=== PATIENT | female | born 1980 | race Caucasian/White ===

== ENCOUNTER → 2016-10-24 | Outpatient (CLI) | payer OTHER ==
--- NOTE | 2016-10-24 17:45 | US ---
October 24, [address] Bishop, Thank you very much for allowing me to see your patient Diana Lieberman. As you know, she is a 36-year- old 2, para 1001 who was asked to see us for advanced maternal age counseling and nuchal tra nslucency measurement. Her history is significant only for advanced maternal age (36 at delivery). She reports that she had reassuring NIPT screening. LMP: 07/28/2016 Age by dates: 12 weeks 3 days EDC: 05/05/2017 based on LMP consistent with 8-week ultrasound ULTRASOUND [place] rump length: 70 mm Gestational age by crown rump length: 13 weeks 0 day(s) CLOTILDE by crown rump length: 05/01/2017 Consistent with established dating: Yes Nuchal translucency: 2.0 mm, which is reassuring at this gestational age Nasal bone: Present heart rate: 160 bpm Placenta: Right ovary not visualized. Left ovary visualized and appears normal. It measures 3.4 x 1.7 x 2.4 cm No overt structural anomalies were identified for this early ultrasound, but please note that a full anatomic evaluation has not occurred at this early gestational age. IMPRESSION: 1. Intrauterine at 12 weeks 3 days with EDC of 05/05/2017. 2. The limited anatomy appears normal. 3. The two Down syndrome markers are normal. She has had NIPT screening, which was reassuring per he r report. We discussed the sensitivity and predictive values of this testing as well as that the onl y way to directly evaluate the chromosomes is by invasive procedure such as CVS or amniocentesi s. RECOMMENDATIONS: -serum AFP screening after 16 weeks to assess neural tube defect risk -detailed anatomy ultrasound at ~20 weeks -Diana declines invasive diagnostic testing at this time Thank you for allowing us the opportunity to evaluate your patient. Should you have any further ques tions or concerns please do not hesitate to contact me. Approximately 15 minutes were spent with the patient, of which 10 minutes were spent in [id number] consultation discussing screening and diagnosis. Ashia Christianson M.D., Ph.D. Breakfast And Room Attendant Department of Obstetrics and Gynecology [facility]
--- NOTE | 2016-10-25 00:37 | US ---
First Trimester Obstetrical Sonography CLINICAL HISTORY: 36-year-old female with advanced maternal age, presenting for early scree brian evaluation. TECHNIQUE: A curvilinear 5-megahertz transducer was used to sonographically evaluate the fetus and t he placenta. M-mode Doppler was used. Dr. Ashia Christianson is present. COMPARISON STUDY: None currently available. LMP: July 29, 2016, indicating an age of 12 weeks, 3 days, and an estimated date of delivery of J [id number]. FINDINGS: There is a single viable intrauterine gestation, with a crown-rump length of 70 mm, corresponding to an age of 13 weeks, 2 days. The heart rate is 160 bpm. The placenta is formi ng anteriorly. There is no focal fibroid or subchorionic hemorrhage. The heart rate is 160 bp m. The maternal right ovary is not visualized. The maternal left ovary measures 3.4 x 1.7 x 2.4 cm. The nuchal translucency is normal, measuring 2.0 mm, and a nasal bone is seen. IMPRESSION: There is a single viable intrauterine gestation, with two normal early screenin g markers. The patient should return at 20 weeks gestation for more complete anatomic screening and repeat biometry. Please also refer to Dr. Christianson' separate assessments and recommendations.
== END ==
LOC: FIMAGING 14:30
PROVIDERS: ATTEND Obstetrics & Gynecology
DX: Z36 Encounter for antenatal screening of mother (principal); Z3A.12 12 weeks gestation of pregnancy; O09.521 Supervision of elderly multigravida, first trimester

== ENCOUNTER → 2016-11-18 | Outpatient (CLI) | payer OTHER ==
--- NOTE | 2016-11-18 15:55 | US ---
November 18, [address] Bishop, Thank you for requesting consultation and a ultrasound to evaluate the anatomy for your patient, Mrs. Lieberman. As you know, Diana is a 36 year old G 2, P 1001 with a sherman preg olga dating 16 w 0 d; CLOTILDE of 05/05/17 by LMP confirmed by 8 week ultrasound. Aneuploidy screening w as performed and returned reassuring results. Carrier screening was also performed revealing that sh e is a CF carrier (spouse is not), and that she has one allele in the premutation area with 62 repeat s for Fragile X. ULTRASOUND Number of fetuses: 1 Placental location: Anterior Placental cord insertion: Intraplacental presentation: Variable Cervix: 3.6 cm viewed transabdominally Maximum Vertical Pocket: 4.5 cm The adnexa were evaluated. No pathology was seen. Right ovary is visualized and seen as normal. It measures 2.9 x 1.5 x 3.0 cm. Left ovary is not seen on today's ultrasound. MEASUREMENTS: Biparietal diameter: 37 mm 17 weeks, 3 days Head circumference: 142 mm 17 weeks, 4 days Abdominal circumference: 116 mm 17 weeks, 3 days Femur length: 22 mm 16 weeks, 4 days Humerus length: 22 mm 16 weeks, 5 days Transcerebellar diameter: 17 mm 17 weeks, 2 days Average ultrasound age: 17 weeks, 2 days Estimated weight: 179 gm weight percentile: 96% ANATOMY Supratentorial brain: Normal including views of the falx, cavum septum pellucidum and choroids Lateral Ventricle: Normal, measuring 5.5 mm Posterior fossa: Normal including the cerebellum and cisterna magna Spine: Normal Nuchal fold: 5.5 mm normal Face: Normal views of the lip and nose area Profile: Normal Palate: Suboptimal Heart: Four Chamber View: Limited views; 4 chambers noted LVOT: Limited, but correctly oriented RVOT: Limited but correctly oriented 3VV: Normal Tracheal View: Suboptimal Aortic Arch: Suboptimal Ductal Arch: Suboptimal SVC/IVC: Suboptimal Heart Rate 161 bpm Diaphragm: Normal appearance without overt abnormality detected Stomach: Normal Umbilical cord insertion: Normal Right kidney: Normal Left kidney: Normal Bladder: Normal Number of cord vessels: Three Upper extremities: Normal Lower extremities: Normal Gender: Male IMPRESSION: 1. Intrauterine at 16 w 0 d, ultrasound is consistent with her established CLOTILDE of 05/05/17 . 2. Normal anatomical survey for this gestational age with suboptimal cardiac views and views o f the face including palate. 3. Cervical length is normal at 3.6 cm without evidence of insufficiency. 4. CF carrier; spouse is not. 5. 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 Offered and declined amniocentesis RECOMMENDATIONS: I was pleased to review today's ultrasound with your patient and her spouse. I reassured her that th e baby is growing appropriately with normal amniotic fluid volume. Our detailed review of the anatomy did not reveal any overt abnormalities but was limited by early gestational age for ful l evaluation of the heart and face. I did recommend a reevaluation in our office in 4 weeks. We spent the majority of our time discussing her carrier screening. She is a CF carrier and her spou se is not. She is aware that the risk of CF for her child very low, but not zero. We also discussed Fragile X premutation of the one allele. She was able to share with me that she has 2 AG breaks whi ch limits the risk of expansion. So although she has 50% chance of passing on this allele with a ri sk around 2.7% for an affected child this risk is now lower based on this information. With her risk <1% and no case reports of expansion in the literature she was much more at ease with the informatio n. We discussed opportunities for definitive genetic diagnosis by amniocentesis including the proced ure, risks, benefits, alternatives and limitations to the information received. After our conversati on, your couple DECLINED amniocentesis. I recommend a follow up in 4 weeks. Thank you for allowing us the opportunity to evaluate your patient. Should you have any further ques tions or concerns please do not hesitate to contact me. Approximately 15 minutes were spent with the patient and 10 minutes were spent in face to face consu ltation. Dionne Ortiz MD Audio Director Maternal Medicine Diagnosis Department of Obstetrics & Gynecology [facility]
--- NOTE | 2016-11-18 17:30 | US ---
Complete Obstetric Ultrasound dated November 18, 2016 Indication: Check growth and anatomy. Cystic fibrosis carrier, and fragile X. The estimated gestatio nal age by LMP is 16 weeks 0 days yielding an EDC of May 05, 2016. Comparison: March 24, 2017 Findings: Number: 1 Presentation: Breech Placental location: Anterior without previa Cervix: 3.56 cm transabdominally HR: 161 bpm MVP: 4.45 cm No adnexal mass. Ovaries are normal. Biometry: Biparietal diameter: 3.7 cm 17 weeks 3 days Head circumference: 14.2 cm 17 weeks 4 days Abdominal circumference: 11.6 cm 17 weeks 3 days Femur length: 2.2 cm 16 weeks 4 days Humerus length: 2.1 cm 16 weeks 5 days HC/AC: 1.22 (1.05 - 1.39) FL/BPD: 58% FL/AC: 19% Average ultrasound age: 17 weeks 2 days EDC based on today's average ultrasound age: April 26, 2017 Estimated weight is 179 +/- 26 gms. The estimated weight is at the 96 % based on previous dating. ANATOMY SURVEY: Supratentorial brain: Normal Posterior fossa: Normal Spine: Normal Nose and lips: Normal Facial profile: Normal Heart: Four chamber heart. Intact interventricular septum. Cardiac outflow tracts: Normal Stomach: Normal Umbilical cord insertion: Normal Kidneys: Normal, no pyelectasis Bladder: Normal Number of cord vessels: Three Upper extremities: Normal Lower extremities: Normal. No clubbing. Impression: 1. Living sherman . Size concordant with dates. The estimated gestational age by biometry is 17 weeks 2 days yielding an EDC of April 26, 2017. 2. Unremarkable anatomy. No anomalies detected. 3. Please see additional consultation by Dr. Dionne Ortiz.
== END ==
LOC: FIMAGING 13:37
PROVIDERS: ATTEND Obstetrics & Gynecology
DX: O09.522 Supervision of elderly multigravida, second trimester (principal); O28.5 Abnormal chromosomal and genetic finding on antenatal screening of mother; Z3A.16 16 weeks gestation of pregnancy

== ENCOUNTER 2017-03-17 00:50 | Observation (INO) | payer OTHER ==
[2017-03-17] MEDS ORDERED: TERBUTALINE SULFATE 1 MG/ML VIAL SC ONE (02:00)
[2017-03-17] MEDS ORDERED: LR 1,000 ML IV ONE (02:00)
== END 2017-03-17 04:30 | disposition home or self-care (01) ==
LOC: FLD 00:50
PROVIDERS: ADMIT Obstetrics & Gynecology; ATTEND Obstetrics & Gynecology
DX: O60.03 Preterm labor without delivery, third trimester (principal); O09.529 Supervision of elderly multigravida, unspecified trimester; Z3A.33 33 weeks gestation of pregnancy
CPT/HCPCS: 59025; G0378; J3105

== ENCOUNTER 2017-04-14 11:15 | Inpatient (IN) | payer OTHER ==
[2017-04-14] MEDS ORDERED: EPSOM SALT 454 GM TP PRN (12:10)
[2017-04-14] MEDS ORDERED: LR 1,000 ML IV PRN (12:10)
[2017-04-14] MEDS ORDERED: OXYTOCIN/RINGERS LACTATE 1,000 ML IV PRN (12:10)
[2017-04-14] MEDS ORDERED: TERBUTALINE SULFATE 1 MG/ML VIAL IV PRN (12:10)
[2017-04-14] MEDS ORDERED: OLIVE OIL 118 ML BTL MISC PRN (12:10)
[2017-04-14 12:24] LABS: ABSOLUTE IMMATURE GRANULOCYTES 0.12 10^3/uL (0.00-0.10); ADD DIFF? NO; ADD MORPH? NO; ADD SCAN? NO; ATYPICAL LYMPHOCYTE FLAG 10 (0-99); FRAGMENT RBC FLAG 0 (0-99); HEMATOCRIT 40.7 % (38.0-47.0); HEMOGLOBIN 14.3 g/dL (12.6-16.3); LEFT SHIFT FLG 10 (0-99); LIPEMIA HEMOLYSIS FLAG 90 (0-99); MEAN CELL HEMOGLOBIN 31.2 pg (27.9-34.1); MEAN CELL HEMOGLOBIN CONCENTR. 35.1 g/dL (32.4-36.7); MEAN CELL VOLUME 88.9 fL (81.5-99.8); MEAN PLATELET VOLUME 10.4 fL (8.7-11.7); PLATELET CLUMPS FLAG 10 (0-99); PLATELET COUNT 290 10^3/uL (150-400); RED BLOOD CELL COUNT 4.58 10^6/uL (4.18-5.33); RED CELL DISTRIBUTION WIDTH 13.7 % (11.5-15.2)
[2017-04-14] MEDS ORDERED: AMMONIA AROMATIC 1 EACH AMP IH ONE (12:32)
[2017-04-14] MEDS ORDERED: TERBUTALINE SULFATE 1 MG/ML VIAL ONE (12:32)
[2017-04-14] MEDS ORDERED: OLIVE OIL 118 ML BTL ONE (12:32)
[2017-04-14] MEDS ORDERED: LIDOCAINE 1% 300 MG/30 ML SDV ONE (12:32)
[2017-04-14] MEDS ORDERED: MISOPROSTOL 200 MCG TAB ONE (12:33)
[2017-04-14] MEDS ORDERED: OXYTOCIN 10 UNIT/ML VIAL ONE (12:33)
[2017-04-14] MEDS ORDERED: fentaNYL 100 MCG/2 ML INJ ONE (12:50)
[2017-04-14] MEDS ORDERED: PHENYLEPHRINE HCL 100 MCG/ML SYR ONE (12:51)
[2017-04-14] MEDS ORDERED: BUPIVACAINE 0.25% 30 ML SDV ONE (12:51)
[2017-04-14] MEDS ORDERED: fentaNYL 2MCG/ML/BUP 0.1% RTU 100 ML BAG EP ONE (12:51)
[2017-04-14] MEDS ORDERED: NALOXONE HCL 0.4 MG/ML INJ IVP PRN (13:11)
[2017-04-14] MEDS ORDERED: ONDANSETRON 4 MG/2 ML VIAL IVP PRN (13:11)
[2017-04-14] MEDS ORDERED: PHENYLEPHRINE HCL 100 MCG/ML SYR IVP PRN (13:11)
--- NOTE | 2017-04-14 13:25 | OBPROG ---
OBG Labor Progress Note Assessment/Plan: Assessment:cat1 coping fair epidural placed for pain relief at patient request srom clear fluid 8/100/-1 cephalic gbs negative Plan:expectant management of labor 04/14/17 13:23 Subjective: Getting an epidural for pain relief. Before epidural utilized laughing gas to assist with pain relief Objective: 04/14/17 12:10 Patient ABO/Rh O POSITIVE 04/14/17 12:10 - SVE Dilation (cm): 8 Effacement (%): 100 Station: -1 - Physical Exam General Appearance: WD/WN, alert, no apparent distress Respiratory: chest non-tender, lungs clear, normal breath sounds Cardiac/Chest: regular rate, rhythm Abdomen: normal bowel sounds Extremities: normal range of motion, Cora's sign (negative bilaterally) DTR- Lower Extremities: Knee (R): 1+, Knee (L): 1+ (no clonus) Skin: normal color, warm/dry Neuro/Psych: no motor/sensory deficits, alert, normal mood/affect, oriented x 3 ICD10 Worksheet Patient Problems: Problems Problem Status Onset Vaginal delivery Acute
[2017-04-14] MEDS ORDERED: fentaNYL 2MCG/ML/BUP 0.1% RTU 100 ML EP SCH (13:30)
[2017-04-14] MEDS ORDERED: LR 500 ML IV SCH (13:30)
--- NOTE | 2017-04-14 14:29 | GHP ---
[f rep st] HISTORY AND PHYSICAL DATE OF ADMISSION: 04/14/2017 HISTORY: The patient is a 36-year-old 2, para 1, with an EDC of 2016, who comes in on 04/14/2017 with complaints of regular contractions since early a.m. Has been routinely seeing [facility] since 8 weeks and 2 days. MEDICAL HISTORY: The patient has a history of migraines, history of molluscum, rare yeast, history of anxiety, probable depression with first delivery. SOCIAL HISTORY: The patient is to a nonsmoker. Denies drug use. ALLERGIES: NKDA. MEDICATIONS: vitamins. [employer] WORK[employer] HISTORY: Anemic. Delivered in 07/2013 a male, 7 pounds and 5 ounces, at 37 and 2/7 weeks. 12 hours of labor. Vaginal delivery with an epidural. FAMILY HISTORY: Noncontributory. LABS: O positive. Antibody negative. RPR is nonreactive. Rubella is not immune. Hepatitis is negative. HIV is negative. Gonorrhea and chlamydia were negative. 1 hour GTT was within normal limits. Verifi was negative. The patient is GBS negative. PHYSICAL EXAMINATION: GENERAL: The patient is awake, alert, and oriented x3. LUNGS: Clear bilaterally. ABDOMEN: Bowel sounds are positive in all 4 quadrants. EXTREMITIES: DTRs are 1+ bilaterally. No clonus. Homans sign is negative bilaterally. Epidural is one-sided at this time, complaining of less pain with contractions. Exam is 8, 100, -1 station, cephalic. Kimberly every 3-4 minutes spontaneous rupture of membranes. The patient is GBS negative. PLAN OF CARE: 1. Expectant management of labor. 2. Epidural for pain relief. 3. GBS negative. 4. Consult Dr. Ursula Bishop for any difficulties. /[id number]/MODL MTDD
[2017-04-14] MEDS ORDERED: METHYLERGONOVINE MAL 0.2 MG/ML INJ ONE (16:19)
[2017-04-14] MEDS ORDERED: SIMETHICONE 80 MG TAB CHEW PO PRN (17:29)
[2017-04-14] MEDS ORDERED: ACETAMINOPHEN 325 MG TAB PO PRN (17:29)
[2017-04-14] MEDS ORDERED: HYDROCORTISONE 0.5% CREAM TP PRN (17:29)
--- NOTE | 2017-04-14 17:29 | OBDEL ---
Info Type: Vaginal GBS+: No Indications for Delivery: Spontaneous Labor, SROM Vaginal Delivery - Labor and Delivery Onset of Contractions Date: 04/14/17 Onset of Contractions Time: 08:00 Onset of Contractions Type: Spontaneous Rupture of Membranes Date: 04/14/17 Rupture of Membranes Time: 15:15 Rupture of Membranes Type: Spontaneous Amniotic Fluid Color: Clear Dilation Complete Date: 04/14/17 Dilation Complete Time: 15:15 Placenta Delivery Date: 04/14/17 Placenta Delivery Time: 16:14 Total Hours of Labor: 8 Laceration: Other (Specify) (vaginal/ bilateral periurethral repair the right left labial repaired with 4.0 vicryl) Repair: 3-0, Vicryl Vaginal Sponge Count Correct: Yes Vaginal Needle Count Correct: Yes Vaginal Sweep Performed: No EBL: 400 Delivery Events: None - Medications Labor Augmentation/Induction Methods Used: None Data Anne Delivery Date: 04/14/17 Delivery Time: 16:01 CLOTILDE: 05/05/17 Gestational Age: 37 week(s) and 0 day(s) Sex of : Male Score (1 Min): 8 Score (5 Min): 9 ICD10 Worksheet Patient Problems: Problems Problem Status Onset Vaginal delivery Acute
[2017-04-14] MEDS: IBUPROFEN 600 MG TAB PO PRN (19:36)
[2017-04-14] MEDS: DOCUSATE SODIUM 100 MG CAP PO PRN (21:46)
[2017-04-15] MEDS: IBUPROFEN 600 MG TAB PO PRN ×4 (01:20→19:50)
[2017-04-15] MEDS: DOCUSATE SODIUM 100 MG CAP PO PRN (07:39)
--- NOTE | 2017-04-15 20:15 | OBPP ---
Progress Note Assessment/Plan: Assessment: ppd# 2 s/p breast feeding Plan: routine post care 04/15/17 20:13 Subjective: patient is doing well. pain is well controlled. cramping controlled with ibuprofen. normal lochia. denies headache and changes in vision. voiding without difficulty. Objective: 04/14/17 12:10 Patient ABO/Rh O POSITIVE 04/14/17 12:10 Temp Pulse Resp BP Pulse Ox 37.0 C 90 16 104/70 96 04/15/17 07:45 04/15/17 07:45 04/15/17 07:45 04/15/17 07:45 04/15/17 07:45 Uterine Position/Fundal Height: Umbilicus -2 Uterine Tone: Firm Physical Exam - Physical Exam General Appearance: WD/WN, alert, no apparent distress Respiratory: chest non-tender, lungs clear, normal breath sounds Cardiac/Chest: normal peripheral pulses, regular rate, rhythm Abdomen: normal bowel sounds, hypoactive bowel sounds, non-tender Extremities: normal range of motion, non-tender, normal inspection, normal capillary refill Skin: normal color, warm/dry Neuro/Psych: no motor/sensory deficits, alert, normal mood/affect, oriented x 3
[2017-04-16] MEDS: HYDROCODONE/APAP 5/325 TAB PO PRN ×3 (00:57→13:31)
[2017-04-16] MEDS: IBUPROFEN 600 MG TAB PO PRN ×3 (01:28→15:06)
[2017-04-16] MEDS: DOCUSATE SODIUM 100 MG CAP PO PRN (08:31)
--- NOTE | 2017-04-16 08:31 | OBPP ---
Progress Note Assessment/Plan: Assessment: s/p PPD # 2 - pt is stable Plan: Plan for d/c home later today Instructions reviewed with pt Rx given for [place] Cont PNV, colace Pelvic rest RTC in 4 and 6 weeks for pp visit 04/16/17 08:28 Subjective: Pt seen and examined. Doing well with no complaints. Mild cramping. Moderate lochia. Voiding without difficulty. Passing flatus, no BM yet. BF with some difficulty-to meet with today. Objective: 04/14/17 12:10 Patient ABO/Rh O POSITIVE 04/14/17 12:10 Temp Pulse Resp BP Pulse Ox 36.9 C 106 H 18 120/73 95 04/15/17 20:00 04/15/17 20:00 04/15/17 20:00 04/15/17 20:00 04/15/17 20:00 Uterine Position/Fundal Height: Umbilicus -2 Uterine Tone: Firm Physical Exam - Physical Exam General Appearance: WD/WN, alert, no apparent distress Respiratory: lungs clear, normal breath sounds Cardiac/Chest: regular rate, rhythm Abdomen: normal bowel sounds, non-tender, soft, flatus (+) Extremities: non-tender, normal inspection Skin: normal color, warm/dry Neuro/Psych: alert, normal mood/affect, oriented x 3
--- NOTE | 2017-04-16 08:33 | OBGCSDC ---
General Delivery Information - General Info : 2 Para: 2 Delivery Physician/CNM: Melissa Fish Admission Date: 04/14/17 Labs: Patient ABO/Rh O POSITIVE 04/14/17 12:10 Hct 40.7 % (38.0-47.0) 04/14/17 12:10 Vaginal - Diagnosis Labor: Spontaneous Rupture of Membranes Type: Spontaneous Amniotic Fluid Color: Clear Laceration: Other (Specify) (vaginal/ bilateral periurethral repair the right left labial repaired with 4.0 vicryl) Repair: 3-0, Vicryl Delivery Events: None - Operations/Procedures L&D Analgesia/Anesthesia Type: Epidural - Hospital Course : Uncomplicated. Mild cramping. Moderate lochia. Passing flatus, no BM yet. BF with some difficulty-cluster feeding. - Delivery L&D Analgesia/Anesthesia Type: Epidural Data Anne Delivery Date: 04/14/17 Delivery Time: 16:01 CLOTILDE: 05/05/17 Gestational Age: 37 week(s) and 2 day(s) Sex of Infant: Male Mason Weight (gm): 3600 kg Score (1 Min): 8 Score (5 Min): 9 Discharge Information - Discharge Information Discharge Medications: Ibuprofen, Other (Specify) ([place]) Condition: Good Instruction/Follow Up: Four Weeks, Six Weeks Discharge Physician/CNM: Ursula Bishop
[2017-04-16 08:44] VITALS: BP 126/85; PULSE 85; RESP 17; TEMP 98.5; O2SAT 96
== END 2017-04-16 15:30 | disposition home or self-care (01) | DRG 775 ==
LOC: FLD 11:15 → OBSVTOIN 12:13 → FOB 20:34
PROVIDERS: ADMIT Advanced Practice Midwife; ATTEND Obstetrics & Gynecology
PROC: 0UQMXZZ Repair Vulva, External Approach (ICD-10-PCS; principal; 2017-04-14)
PROC: 10E0XZZ Delivery of Products of Conception, External Approach (ICD-10-PCS; principal; 2017-04-14)
DX: O71.82 Other specified trauma to perineum and vulva (principal); Z3A.37 37 weeks gestation of pregnancy; Z37.0 Single live birth
CPT/HCPCS: J2210; J2370; J3010; J3105

== ENCOUNTER 2017-04-19 20:08 | Emergency (ER) | payer OTHER ==
[2017-04-19 20:15] VITALS: RESP 16; TEMP 98.2
--- NOTE | 2017-04-19 20:25 | EDPHY ---
H & P Stated Complaint: <1 week post , lightheaded, nauseated, ?febrile HPI/ROS: CHIEF COMPLAINT: Lightheadedness, diaphoresis. HISTORY OF PRESENT ILLNESS: The patient is a 36-year-old female 5 days post who presents with lightheadedness and diaphoresis that began earlier today. The baby was delivered at 37 weeks vaginally with no complications. She did have some cold symptoms during delivery including cough and congestion. She admits having some sharp abdominal pains since the but has been eating normally. She denies vaginal bleeding, discharge, vomiting, diarrhea. She has been the baby. She reports having dehydration a few months ago during the . REVIEW OF SYSTEMS: A ten point review of systems was performed and is negative with the exception of the items mentioned in the HPI. Source: Patient Exam Limitations: No limitations - Personal History LMP (Females 10-55): Over 28 Days Ago Current Tetanus/Diphtheria Vaccine: Yes Tetanus Vaccine Date: within 10 years - Medical/Surgical History Hx Asthma: No Hx Chronic Respiratory Disease: No Hx Diabetes: No Hx Cardiac Disease: No Hx Renal Disease: No Hx Cirrhosis: No Hx Alcoholism: No Hx HIV/AIDS: No Hx Splenectomy or Spleen Trauma: No Other PMH: PMHx: denies. PSHx: hernia repair - Social History Smoking Status: Never smoked Alcohol Use: None Drug Use: None Additional Social History: 1. . 2. Mother of two. - Physical Exam Exam: General Appearance: Alert. Vital signs reviewed. Blood pressure 146/86 Eyes: Pupils equal and round, no conjunctival injection, no discharge. Anicteric. ENT, Mouth: Mucous membranes are moist, no oropharyngeal erythema or edema. Neck: No lymphadenopathy, supple. Respiratory: Lungs are clear to auscultation; no wheezes, rales, or rhonchi. Cardiovascular: Regular rate and rhythm; no murmur, rub, or gallop. Gastrointestinal: Abdomen is soft and nontender, no masses or organomegaly, bowel sounds normal. Genitalia: No swelling or erythema, small amount of blood on pad. Skin: Warm and dry, no rashes on exposed skin, normal color. Back: Nontender to palpation over the thoracolumbar spine. No CVAT. Extremities: No lower extremity edema, no calf tenderness or swelling. Neurological: Alert and oriented. Moving all four extremities easily and equally. Psychiatric: Normal affect. Constitutional: Initial Vital Signs Temperature (C) 36.8 C 04/19/17 20:09 Heart Rate 87 04/19/17 20:09 Respiratory Rate 16 04/19/17 20:09 Blood Pressure 146/86 H 04/19/17 20:09 O2 Sat (%) 97 04/19/17 20:09 O2 Delivery Mode Room Air Allergies/Adverse Reactions: No Known Allergies Allergy (Verified 03/02/16 15:47) Home Medications: Medication Instructions Recorded Fish Oil 1 cap PO DAILY 07/20/13 1 tab PO DAILY 07/20/13 Hydrocodone/APAP 5/325 [Lucas 1 - 2 tab PO Q4HRS PRN #30 tab 04/16/17 5/325 (*)] Ibuprofen [Motrin (*)] 600 mg PO Q6HRS PRN #30 tab 04/16/17 Cephalexin [Keflex (*)] 500 mg PO BID #10 cap 04/19/17 Hydrocodone/APAP 5/325 [Lucas 1 tab PO Q4HRS PRN #30 tab 04/21/17 5/325 (*)] Ibuprofen [Motrin (*)] 600 mg PO Q6HRS PRN #0 tab 04/21/17 Medical Decision Making ED Course/Re-evaluation: 36-year-old female presents with lightheadedness 5 days . An IV was established and labs ordered. The patient's blood pressure is 70/45 upon standing. It is noted that her BP was slightly high in triage (sitting) and it is possible that this low reading is discordant, inaccurate. However, it was rechecked and she was symptomatic with standing. I think that she is orthostatic. 1L IV saline administered. I reviewed the patient's laboratory studies. Urine consistent with UTI. 2248: Consulted with INGOT STRIPPER from [facility]. 2299: Reassessed patient. Discussed results of workup so far. She is still feeling unwell--slightly lightheaded. Her systolic blood pressure after IVF is 130. She is not orthostatic. She has had 1 L IV fluid, normal saline, and has been able to drink a small can of [place]o [place] and a glass of water. Will recheck temperature. She does not have CVA tenderness. I have ordered a dose of Lucas and 1gm IV Rocephin for her here in the ED. We will reassess after to determine disposition. 2350: Sitting up in bed breast-feeding. She is feeling markedly better. She thinks that the Lucas has helped, as it has decreased her pain. She is now comfortable returning home. She will be discharged with a prescription for Keflex. She has Lucas at home. She will follow up on Friday [facility]. She is not febrile, does not have CVAT, is able to tolerate PO. I do not think that she has pyelonephritis. BP at DC 125/79. Differential Diagnosis: I considered a ddx that includes but is not limited to infection (UTI, mastitis , endometritis), sepsis, dehydration secondary to decreased intake or bleeding, eclampsia. - Data Points Laboratory Results: Laboratory Results 04/19/17 20:33 04/19/17 20:33 Medications Given: Discontinued Medications Hydrocodone Bitart/Acetaminophen (Lucas 5/325) 1 tab PO EDNOW ONE Stop: 04/19/17 23:02 Last Admin: 04/19/17 23:05 Dose: 1 tab Cephalexin (Keflex 500 Mg Prepack#4) 1 btl TAKEHOME EDNOW ONE PRN Reason: Protocol Stop: 04/19/17 23:40 Last Admin: 04/19/17 23:52 Dose: 1 btl Sodium Chloride (Ns) 1,000 mls @ 0 mls/hr IV ONCE ONE PRN Reason: Wide Open Stop: 04/19/17 21:11 Last Admin: 04/19/17 21:22 Dose: 1,000 mls Ceftriaxone Sodium/Dextrose (Rocephin 1 Gm (Premix)) 50 mls @ 100 mls/hr IV EDNOW ONE PRN Reason: Protocol Stop: 04/19/17 23:29 Last Admin: 04/19/17 23:32 Dose: 50 mls Ibuprofen (Motrin) 600 mg PO EDNOW ONE Stop: 04/19/17 21:12 Last Admin: 04/19/17 21:21 Dose: 600 mg Departure - Departure Disposition: Home, Routine, Self-Care Clinical Impression: Dehydration Urinary tract infection Qualifiers: Urinary tract infection type: acute cystitis Hematuria presence: without hematuria Qualified Code(s): N30.00 - Acute cystitis without hematuria Condition: Good Instructions: Cephalexin (By mouth), Dehydration (ED), Urinary Tract Infection in Women (ED) Additional Instructions: Take the antibiotic, Keflex, twice daily as prescribed. Call [facility] Friday to arrange a follow-up appointment. They would like to see you on Friday. If anything changes for the worse--persistent fever, vomiting, lightheadedness or fainting, worsening pain, bleeding, any new or concerning symptoms--please return to the emergency department for a re-evaluation. Referrals: Amarilis Rivera MD [Primary Care Provider] - As per Instructions [facility] [Provider Group] - As per Instructions Prescriptions: Cephalexin [Keflex (*)] 500 mg PO BID #10 cap Report Scribed for: Iva Sanches Report Scribed by: James Atwood Date of Report: 04/19/17 Time of Report: 20:39 Physician Review and Approval Statement: 04/19/17 20:25 Portions of this note were transcribed by the medical typist. I, Dr. Iva Sanches, personally performed the history, physical exam, and medical decision- making; and confirmed the accuracy of the information in the transcribed note.
[2017-04-19 20:51] LABS: % IMMATURE GRANULYOCYTES 1.6 % (0.0-1.1); ABSOLUTE IMMATURE GRANULOCYTES 0.19 10^3/uL (0.00-0.10); ADD DIFF? NO; ADD MORPH? NO; ADD SCAN? NO; ATYPICAL LYMPHOCYTE FLAG 0 (0-99); FRAGMENT RBC FLAG 0 (0-99); HEMATOCRIT 36.2 % (38.0-47.0); HEMOGLOBIN 12.4 g/dL (12.6-16.3); LEFT SHIFT FLG 10 (0-99); LIPEMIA HEMOLYSIS FLAG 90 (0-99); MEAN CELL HEMOGLOBIN 31.2 pg (27.9-34.1); MEAN CELL HEMOGLOBIN CONCENTR. 34.3 g/dL (32.4-36.7); MEAN PLATELET VOLUME 10.1 fL (8.7-11.7); PLATELET CLUMPS FLAG 10 (0-99); PLATELET COUNT 300 10^3/uL (150-400); RED BLOOD CELL COUNT 3.98 10^6/uL (4.18-5.33); RED CELL DISTRIBUTION WIDTH 13.3 % (11.5-15.2)
[2017-04-19 20:58] LABS: ANION GAP 11 mEq/L (8-16); CALCIUM 9.4 mg/dL (8.5-10.4); CARBON DIOXIDE 18 mEq/l (22-31); CHLORIDE 111 mEq/L (97-110); CREATININE 0.6 mg/dL (0.6-1.0); GLOMERULAR FILTRATION RATE > 60; GLUCOSE 89 mg/dL (70-100); POTASSIUM 4.1 mEq/L (3.5-5.2); SODIUM 140 mEq/L (134-144)
[2017-04-19] MEDS ORDERED: NS 1,000 ML IV ONE (21:10)
[2017-04-19] MEDS ORDERED: IBUPROFEN 600 MG TAB PO ONE (21:11)
[2017-04-19 21:12] LABS: COLOR RED; LEUKOCYTE ESTERASE,URINE 3+ (NEGATIVE); NITRITE,URINE NEGATIVE (NEGATIVE)
[2017-04-19 21:23] LABS: BACTERIA 2+ /hpf (NONE SEEN); MUCUS TRACE /lpf (NONE-1+); RBC,URINE 50-182 /hpf (0-3); WBC,URINE 50-182 /hpf (0-3)
[2017-04-19] MEDS ORDERED: HYDROCODONE/APAP 5/325 TAB PO ONE (23:01)
[2017-04-19] MEDS ORDERED: CEPHALEXIN 500MG PREPACK#4 BTL TAKEHOME ONE ×2 (23:34→23:39)
[2017-04-20 00:06] VITALS: BP 125/79; PULSE 78; O2SAT 96
== END 2017-04-20 00:07 | disposition home or self-care (01) ==
DX: O86.22 Infection of bladder following delivery (principal); B96.89 Other specified bacterial agents as the cause of diseases classified elsewhere; O99.285 Endocrine, nutritional and metabolic diseases complicating the puerperium; E86.0 Dehydration; R42 Dizziness and giddiness
CPT/HCPCS: 96365; J0696

== ENCOUNTER 2017-04-21 16:38 | Observation (INO) | payer OTHER ==
[2017-04-21] MEDS ORDERED: LR 1,000 ML IV PRN (17:28)
[2017-04-21] MEDS ORDERED: EPSOM SALT 454 GM TP PRN (17:28)
[2017-04-21] MEDS ORDERED: IBUPROFEN 600 MG TAB PO PRN (17:28)
[2017-04-21] MEDS ORDERED: HYDROCODONE/APAP 5/325 TAB PO PRN (17:32)
--- NOTE | 2017-04-21 17:38 | SOAPPROG ---
SOAP Progress Note Assessment/Plan: Assessment: well scant rubra lochia [id number] perineum right labia swollen not well approximated no bleeding encouraged not sitting up to assist with decreasing patient swelling denies PIH symptoms vs wnl treatment for uti friday at the er dehydration lowering bp at that time Plan:pih labs, reassessment 04/21/17 17:38 Subjective: Taking norco routinely. Began taking norco 1 tab routinely since friday. Ibuprofen q6h po prn pain. Perineal pain swollen right labia appears the sutures have come out right labia swollen encouraged ice with witch adrianna. heat sitting in a tub bath with epsom salts several times a day to encourage healing. Denies PIH symptoms Physical Exam - Physical Exam General Appearance: WD/WN, alert, no apparent distress Respiratory: chest non-tender, lungs clear, normal breath sounds Cardiac/Chest: regular rate, rhythm Abdomen: normal bowel sounds, other (abdomen tender to the touch ) Pelvic Exam: vaginal bleeding (scant rubra lochia) Skin: normal color, warm/dry Extremities: normal range of motion, Cora's sign (negative bilaterally), other (dtrs 1+ bilaterally denies PIH symptoms) Neuro/Psych: no motor/sensory deficits, alert, normal mood/affect, oriented x 3 ICD10 Worksheet Patient Problems: Problems Problem Status Onset Vaginal delivery Acute
[2017-04-21 17:42] LABS: % IMMATURE GRANULYOCYTES 1.7 % (0.0-1.1); ABSOLUTE IMMATURE GRANULOCYTES 0.15 10^3/uL (0.00-0.10); ADD DIFF? NO; ADD MORPH? NO; ADD SCAN? NO; ATYPICAL LYMPHOCYTE FLAG 10 (0-99); FRAGMENT RBC FLAG 0 (0-99); HEMATOCRIT 36.7 % (38.0-47.0); HEMOGLOBIN 11.9 g/dL (12.6-16.3); LEFT SHIFT FLG 10 (0-99); LIPEMIA HEMOLYSIS FLAG 80 (0-99); MEAN CELL HEMOGLOBIN 30.9 pg (27.9-34.1); MEAN CELL HEMOGLOBIN CONCENTR. 32.4 g/dL (32.4-36.7); MEAN CELL VOLUME 95.3 fL (81.5-99.8); MEAN PLATELET VOLUME 10.3 fL (8.7-11.7); PLATELET CLUMPS FLAG 10 (0-99); PLATELET COUNT 312 10^3/uL (150-400); RED BLOOD CELL COUNT 3.85 10^6/uL (4.18-5.33); RED CELL DISTRIBUTION WIDTH 13.4 % (11.5-15.2)
[2017-04-21 18:08] LABS: ALANINE AMINOTRANSFERASE 40 IU/L (9-52); ASPARTATE AMINOTRANSFERASE 23 IU/L (14-46); BILIRUBIN,TOTAL 0.3 mg/dL (0.1-1.4); BILIRUBIN-CONJUGATED 0.2 mg/dL (0.0-0.5); BILIRUBIN-UNCONJUGATED 0.1 mg/dL (0.0-1.1); CREATININE 0.7 mg/dL (0.6-1.0); GLOMERULAR FILTRATION RATE > 60; LACTATE DEHYDROGENASE 599 IU/L (313-618); URIC ACID 4.4 mg/dL (2.5-6.8)
[2017-04-21 18:19] VITALS: RESP 16; TEMP 97.9
[2017-04-21 18:20] VITALS: BP 129/60; PULSE 67
--- NOTE | 2017-04-21 20:25 | GHP ---
[f rep st] PREOP HISTORY AND PHYSICAL DATE OF ADMISSION: 04/21/2017 ADMISSION DIAGNOSIS: 2, para 2, who is 7 days with elevated blood pressures and general malaise. HISTORY OF PRESENT ILLNESS: The patient is a 36-year-old, 2, para 2-0-0 -2, who is 7 weeks . She was seen in the emergency room on April 19, with complaint of lightheadedness and general malaise and vaginal pain. She was admitted and given IV fluids. [facility] labs were obtained and she had slightly elevated blood pressures and she was started on Keflex. She presented to our office today complaining of persistent general malaise and vaginal pain. She was evaluated. Her blood pressure was 143/80. The remainder of her physical exam was unremarkable. She does have significant discomfort in her vagina and it appears that her right labial laceration sutures have come undone and there was exposed healing tissue. The patient states the pain is relieved with [place]. She was sent over to Labor and Delivery for observation. She has had normal blood pressures since labor and delivery and then had IV fluid is actually feeling substantially better. She denies any headache or changes in vision. Her fundus is nontender and firm. A transabdominal ultrasound was performed, and no retained products of conception were noted. The patient denies any fevers, or chills, nausea or vomiting, and after IV fluids and [place] , she is feeling substantially better. We had a long discussion about management options with the patient. I did give her a dose of IV Flagyl in addition to her Keflex and patient will be discharged to home on oral Keflex. The patient otherwise states she is doing well. PATIENT'S MEDICAL HISTORY: She has a history of migraines, history of molluscum , history of anxiety, and depression after her 1st delivery. SOCIAL HISTORY: Patient is . She denies tobacco, alcohol, or drug use. ALLERGIES: No known drug allergies. MEDICATIONS: vitamins. FAMILY MEDICAL HISTORY: Noncontributory. PALEOBOTANIST HISTORY: She is a 2, para 2-0-0-2. She has had 2 spontaneous vaginal deliveries. The patient's blood type is O positive. ASSESSMENT AND PLAN: A 36-year-old, 2, para 2-0-0-2, with malaise and vaginal pain 1 week . The patient is feeling substantially better after IV fluids. She will be discharged to home with a prescription for [place] and continue her prescription for Keflex and for Flagyl. I did obtain a vaginal culture in the office and we will check that once it comes back. The patient was instructed to follow up if her malaise worsens, if she develops a temperature or fevers or chills. The patient is instructed to call if she has any questions or concerns. /[id number]/MODL MTDD
[2017-04-22] MEDS ORDERED: metroNIDAZOLE 500 MG TAB PO SCH (06:00)
== END 2017-04-21 20:39 | disposition home or self-care (01) ==
LOC: FLD 16:38
PROVIDERS: ADMIT Obstetrics & Gynecology; ATTEND Obstetrics & Gynecology
DX: O90.1 Disruption of perineal obstetric wound (principal); O90.89 Other complications of the puerperium, not elsewhere classified; E86.0 Dehydration; R53.81 Other malaise
CPT/HCPCS: G0378 ×2

== ENCOUNTER → 2018-08-12 | Outpatient (CLI) | payer OTHER | LOC: FIMAGING 16:51 | PROVIDERS: ATTEND Internal Medicine | DX: R10.2 Pelvic and perineal pain (principal); R10.32 Left lower quadrant pain; Z97.5 Presence of (intrauterine) contraceptive device ==